=== PATIENT | female | born 1985 | race Caucasian/White ===

== ENCOUNTER 2017-10-02 18:06 | Emergency (ER) | payer SELFPAY ==
[~2017-10-02] VITALS: Ht 170.2 cm; Wt 80.0 kg
[2017-10-02] MEDS ORDERED: CIPROFLOXACIN 500 MG TABLET ONE (19:07)
[2017-10-02] MEDS ORDERED: PHENAZOPYRIDINE 200 MG TABLET ONE (19:07)
[2017-10-02 22:30] VITALS: BP 136/71
== END 2017-10-02 22:35 | disposition home or self-care (01) ==
LOC: ED 22:30
DX: F10.220 Alcohol dependence with intoxication, uncomplicated (principal)
CPT/HCPCS: 99283